=== PATIENT | male | born 1990 | race Hispanic/Latino ===

== ENCOUNTER → 2016-10-08 | Outpatient (CLI) | payer OTHER ==
[~2016-10-08] MED LIST: LIDOCAINE 1% INJ 20 ML (XYLOCAINE) VIAL ONE; TETANUS,DIPTH,PERTUSS P/F (BOOSTRIX) 0.5 ML VIAL IM ONE
--- NOTE | 2016-10-08 16:44 | History & Physical-Surgical ---
History of Present Illness History of Present Illness Reason for visit/HPI CC: Foreign body left thumb patient is a 26 year old male who was removing a thorn corral when large thorn went into left thumb. Patient had friend attempt to remove and was unsuccessful. He proceeded to go to urgent care where they attempted to remove but unsuccessful attempt. Patient has moderate pain to the left thumb. He is still able to move in all directions. He is unsure of last tetanus shot. No n/ v fever sweats chills shortness of breath or chest pain. Date of Admission Date Seen by Provider: Oct 08, 2016 Time Seen by Provider: 14:30 I consulted on this patient on 10/08/16 14:30 Attending Physician Garret Lopez DO Admitting Physician No,Local Physician Consult Allergies and Home Medications Allergies Coded Allergies: No Known Allergies (Verified Allergy, 10/08/16) Past Kfijbho-Tvppde-Isyohj Hx Patient Social History Alcohol Use: Denies Use Recreational Drug Use: No Smoking Status: Never a Smoker Recent Foreign Travel: No Contact w/Someone Who Travel: No Immunizations Up To Date Tetanus Booster (TDap): More than 5yrs Seasonal Allergies Seasonal Allergies: No Surgeries HX Surgeries: No Respiratory Hx Respiratory Disorders: No Cardiovascular Hx Cardiac Disorders: No Neurological Hx Neurological Disorders: No Genitourinary Hx Genitourinary Disorders: No Gastrointestinal Hx Gastrointestinal Disorders: No Musculoskeletal Hx Musculoskeletal Disorders: No Endocrine Hx Endocrine Disorders: No HEENT HX ENT Disorders: No Cancer Hx Cancer: No Psychosocial Hx Psychiatric Problems: No Integumentary HX Skin/Integumentary Disorder: No Family Medical History Significant Family History: No Pertinent Family Hx Constitutional: no symptoms reported EENTM: no symptoms reported Respiratory: no symptoms reported Cardiovascular: no symptoms reported Gastrointestinal: no symptoms reported Genitourinary: no symptoms reported Musculoskeletal: other (left thumb pain) Skin: no symptoms reported Psychiatric/Neurological: No Symptoms Reported Physical Exam Vital Signs Capillary Refill : General Appearance: No Apparent Distress HEENT: PERRL/EOMI, Normal ENT Inspection Neck: Supple Respiratory: No Accessory Muscle Use, No Respiratory Distress Cardiovascular: Regular Rate, Rhythm Gastrointestinal: Non Tender, Soft Rectal: Deferred Extremity: Other (left thumb with foreign body, sensation and range of motion normal) Neurologic/Psychiatric: Alert, Oriented x3 Skin: Warm/Dry, Other (small incision left thumb) Assessment/Plan Assessment/Plan Assessment/Plan foreign body left thumb patient was discussed risks and benefits of removing foreign body and he understands risks and benefits. Discussed digital block of left thumb which he agrees to. Patient to follow up in 1 week if needed with myself TDmonica to make up to date. If any changes or signs of infection to be seen at that time. patient and in agreement with plan. Patient was prepped and draped in sterile fashion. A digital block was performed on left thumb injecting 1 mL of 1% lidocaine to medial and lateral aspect of proximal thumb. Lidocaine also injected and incision site. Once anesthetic effect took place wound was probed. Large fixed foreign object palpated. Multiple attempts to remove unsuccessful. Hemostat used to dissect around foreign body, it was then grasped and removed. Foreign body is 12 mm in length thorn. Irrigated wound and bandage applied. Final Diagnosis foreign body left thumb s/p removal GARRET LOPEZ DO Oct 08, 2016 16:44
== END ==
LOC: SDC 14:00
PROVIDERS: ATTEND Surgery
DX: S61.042A Puncture wound with foreign body of left thumb without damage to nail, initial encounter (principal); W60.XXXA Contact with nonvenomous plant thorns and spines and sharp leaves, initial encounter; Z23 Encounter for immunization